=== PATIENT | female | born 1980 | race Caucasian/White ===

== ENCOUNTER → 2020-05-03 11:12 | Outpatient (BNVA) | payer BC, SELFPAY | PROVIDERS: Family Provider Family Medicine; Visit Provider Family Medicine | DX: Z20.828 Contact with and (suspected) exposure to other viral communicable diseases (principal) | CPT/HCPCS: 87635 ==

== ENCOUNTER 2021-05-10 09:35 | Outpatient (CLI) | payer OTHER, SELFPAY ==
--- NOTE | 2021-05-10 09:30 | US_ITS ---
WS: [id number] ULTRASOUND SOFT TISSUES RIGHT groin HISTORY: R19.03 - Right lower quadrant abdominal swelling, mass in the inguinal region. COMPARISON: None available. TECHNIQUE: 2-D and color Doppler imaging is submitted. Very hypoechoic irregular spiculated soft tissue mass in the RIGHT groin with posterior shadowing. Ma ss measures 2.1 x 2.1 x 1.8 cm. No additional masses are identified at the RIGHT groin. This correspo nds to the palpable abnormality. US/US soft tissue/extremity 86835 IMPRESSION: Irregular mass with increased vascularity centered in the RIGHT groin correspon ds to the palpable abnormality. Differential includes metastatic lymph node or aggressive mass such as sarcoma. This needs to be further evaluated. Recommend CT abdomen and pelvis with IV and oral contrast to evaluate for additional abno rmalities.
== END 2021-05-10 09:36 | disposition home or self-care (01) ==
PROVIDERS: PCP Internal Medicine; Visit Provider Surgery
DX: R19.03 Right lower quadrant abdominal swelling, mass and lump (principal)
CPT/HCPCS: 76882

== ENCOUNTER 2021-05-11 12:02 | Outpatient (CLI) | payer OTHER, SELFPAY ==
[2021-05-11] MEDS: iohexol 300 mg/mL 100 mL Btl IV (13:26)
[2021-05-11] MEDS: iohexol 300 mg/mL 50 mL Btl PO (13:27)
--- NOTE | 2021-05-11 13:30 | CT_ITS ---
WS: [id number] CT ABDOMEN PELVIS TECHNIQUE: Contrast-enhanced CT of the abdomen and pelvis with coronal and sagittal reformatted image s. CLINICAL INFORMATION: K43.9 - Ventral hernia without obstruction or gangrene COMPARISON: None. DLP: 1821.[address] scans at [facility] use at least one of these dose optimization techniques: automated e xposure control; mA and/or kV adjustment per patient size (includes targeted exams where dose is matc hed to clinical indication); or iterative reconstruction. FINDINGS:Spiculated lesion in the right superior groin measures 1.8 x 1.8 x 1.9 cm with irregular mar gins and enhancement. Wispy connection to the adjacent anterior rectus sheath. This corresponds to th e lesion seen on ultrasound. This lesion is nonspecific but differential considerations include benig n and malignant etiologies including abdominal wall endometriosis considering prior and pat ient age, desmoid or mesenchymal tumor, metastatic disease, lymphoma/sarcoma, and less likely postope rative scarring or granuloma considering perceived vascularity on ultrasound. Recommend ultrasound-gu ided biopsy for further evaluation. Hepatomegaly. Diffuse fatty infiltration of the liver. A few small hepatic cysts. Gallbladder is cont racted. Normal portal vein and splenic vein. Mild splenomegaly. Lung bases are well aerated. Normal G E junction. This adrenal glands are normal. Normal renal parenchymal enhancement. No hydronephrosis. Normal caliber abdominal aorta.Sigmoid diverticulosis. No evidence of acute diverticulitis. No abdominal or pelvic lymphadenopathy. Multi-follicular ovaries bilaterally. No free fluid in the cu l-de-sac. Small amount of irregular enhancement involving the anterior uterine fundus measuring 1.9 x 1.7 cm may represent a small intrauterine fibroid or sequela from prior . Tiny fat-containing umbilical hernia. Normal lumbar spine. No evidence of ventral abdominal wall marianna ia. CT/CT abdomen pelvis w con* [id number] IMPRESSION: 1. Unusual spiculated lesion in the right superior groin anterior to the rectu s sheath measures 1.8 x 1.8 x 1.9 cm with irregular margins and enhancement. Th is corresponds to the lesion seen on recent ultrasound. Differential considerat ions are discussed above and recommend ultrasound-guided biopsy for further simone luation. 2. Hepatomegaly with splenomegaly. Diffuse fatty infiltration liver. 3. Sigmoid diverticulosis. No evidence of acute diverticulitis. 4. Small amount of irregular enhancement involving the anterior uterine fundus measuring 1.9 x 1.7 cm may represent a small intrauterine fibroid or sequela f rom prior .
== END 2021-05-11 12:03 | disposition home or self-care (01) ==
LOC: RAD 12:06
PROVIDERS: PCP Internal Medicine; Visit Provider Surgery
DX: K43.9 Ventral hernia without obstruction or gangrene (principal); K57.30 Diverticulosis of large intestine without perforation or abscess without bleeding; R16.2 Hepatomegaly with splenomegaly, not elsewhere classified; K62.9 Disease of anus and rectum, unspecified
CPT/HCPCS: 74177

== ENCOUNTER → 2021-05-23 14:03 | Outpatient (BNVA) | payer OTHER, SELFPAY | PROVIDERS: PCP Internal Medicine; Visit Provider Surgery | DX: Z20.822 Contact with and (suspected) exposure to COVID-19 (principal) | CPT/HCPCS: 87635 ==

== ENCOUNTER 2021-05-29 06:19 | Day surgery (SDC) | payer OTHER, SELFPAY ==
[2021-05-26 12:47] VITALS: BMI 34.2
[2021-05-29] VITALS (12 sets, daily range): BP systolic 119–165; BP diastolic 18–118; PULSE 80–103; RESP 10–18; TEMP 36.4–36.6; O2SAT 93–97
--- NOTE | 2021-05-29 06:15 | W.PM.OPSUD ---
Surgery/Procedure H&P Update DATE OF PROCEDURE: May 29, 2021 DATE H&P PERFORMED: 05/10/21 H&P UPDATE INFORMATION: I have reviewed H&P completed within last 30 days, I have examined patient prior to procedure and No changes to prior documentation PREOP DIAGNOSIS: Abdominal wall mass PRIMARY INDICATION FOR PROCEDURE: The same PLANNED PROCEDURE: Operation Date: 05/29/21 07:00 Proposed Procedures p Excision Mass of abd wall 83862 R22.2(Not Applicable) - Rivera Oswald MD
[2021-05-29] MEDS: sodium chloride 0.9% 1,000 ML 30 ML IV (06:42)
[2021-05-29] MEDS: acetaminophen 1,000 MG/100 ML PIGGYBACK 400 MG IV (06:43)
--- NOTE | 2021-05-29 06:50 | P.ANESASSM_ITS ---
Pre-Anesthetic Assessment Pre-Anesthetic Assessment: Height/Weight: Height 1.68 m Weight 96.162 kg Temp Pulse Resp BP Pulse Ox 97.6 F 83 18 162/97 97 05/29/21 06:47 05/29/21 06:47 05/29/21 06:47 05/29/21 06:47 05/29/21 06:47 Preop Diagnosis: Abdominal wall mass Proposed Procedure: Operation Date: 05/29/21 07:00 Proposed Procedures p Excision Mass of abd wall 11605 R22.2(Not Applicable) - Rivera Oswald MD Was Beta Ashley taken within 24 hours: N/A Was Clonidine taken within 24 hours: N/A Last intake: Intake Last Liquid Date 05/28/21 Last Liquid Time 19:00 Last Solid Date 05/28/21 Last Solid Time 19:00 Social: Social History: No alcohol and No tobacco Exam: Pre-Anes Outpt Exam: alert, oriented x 3, clear to auscultation bila terally and regular rate & rhythm Airway: Submandibular: WNL Cervical ROM: WNL MP: 2 Dentition: Chipped History/ROS: No significant history except as noted CV/HEM: CV/HEM: None reported : : None reported Hepatic: Hepatic: None reported GI: GI: None reported Metabolic: Metabolic: None reported Musc/skel: Musc/skel: None reported Neuropsych: Neuropsych: None reported Anesthetic Plan: ASA status: 2 Anesthesia: Anesthesia Evaluation, General and Regional (specify below) Other: Consented for general with possible TAP block in PACU depending on extent of surgery. Risk and benefits explained, all questions answered. Risk of > 500 ml blood loss (7ml/kg in children): No PFSH Anesthesia PFSH: Family History Other Cancer Dementia Diabetes Lung disease Denies family history of CAD (coronary artery disease) Chronic kidney disease (CKD) Stroke Social History Alcohol intake: never Lives independently: Yes Household members: spouse and children Marital status: Data Anesthesia Cardiac Studies: No Data to Display
[2021-05-29] MEDS: lidocaine 2% INJ 20 mL INJECTION (07:18)
--- NOTE | 2021-05-29 07:51 | PM.OP ---
Operative Report Date of procedure: May 29, 2021 Pre-op Diagnosis: Abdominal wall mass Pre-op Diagnosis: Concerning for sarcoma Post-op diagnosis: same Post-op Findings: No invasion to the surrounding fatty tissues or underlying fascia Procedure Done: Excision of right lower anterior abdominal wall mass Implants: 15 [place]ian rounded drain Specimens removed/disposition: Right lower abdomeninal mass, short sutures marked superior and long sutures marked lateral Surgeon: Rivera Oswald Manager Environmental: Surgical techjayden Zapata Anesthesia: General (LMA leasing director Zena) Estimated blood loss (mL): 5 IV fluids (mL): 300 Condition: stable Disposition: same day Procedure: After identifying the patient holding area, the right lower abdominal wall mass was marked before the procedure by myself in the presence of female associate medical director nursing staff Jennifer, patient was then taken to the operative suite, was placed in supine position, IV propofol was infused by the anesthesia followed by LMA, prophylactic IV antibiotics were given per protocol, the abdomen region was done under the usual sterile technique. Time-out was done verifying the patient's name/date of /planned procedure and destination after the procedure, all were in agreement. After palpation of the mass, an incision was created on top of the mass coinciding to the skin crease and in continuity with the previous scar dissection was carried after the skin incision all the way to the subcutaneous tissues and underlying anterior abdominal wall fascia of the rectus abdominis, the mass was then excised en toto and there was no invasion to the surrounding tissues clinically detected or to the underlying fascia, short sutures marked superior and long sutures marked lateral, the specimen was then passed to the circulating nurse for permanent pathology. Thorough irrigation of the cavity was done and hemostasis, elected to leave a 15 [place]ian round drain was sutured to the skin by 2-0 nylon, followed by deep dermal closure by 2-0 Vicryl, 3-0 Vicryl then 4-0 Monocryl for skin closure. Lidocaine 2% was injected at the site of the incision that prior to the injection aspiration was done to make sure no injection is going into any vessel, followed by Dermabond and dry dressing. Patient tolerated the procedure well, count of instruments, needles and sponges were completed at the end of the procedure. And then patient was taken to the recovery area in stable condition. I Was present for the whole entire procedure
[2021-05-29 08:50] LABS: OR HCG Qualitative Urine Negative (Negative)
[2021-05-29] MEDS: HYDROcodone-acetaminophen 5-325 mg Tablet 1 TAB PO (09:04)
--- NOTE | 2021-05-29 09:53 | ANE.PACU2 ---
Inpatient post-anesthesia follow up: Airway intact: Yes Vital signs: Temperature 98 F Pulse Rate 90 Respiratory Rate 18 Blood Pressure 134/88 Pulse Oximetry 97 Oxygen Delivery Me thod Room Air Oxygen Flow Rate 5 Fraction of Inspir ed Oxygen Hydration adequate: Yes Nausea and vomiting: No Pain level: 1 Mental status: Baseline
== END 2021-05-29 09:38 | disposition home or self-care (01) ==
PROVIDERS: Anesthesiology; PCP Internal Medicine; Visit Provider Surgery
PROC: (CPT 13101; principal; 2021-05-29 07:00)
DX: R22.2 Localized swelling, mass and lump, trunk (principal); N80.6 Endometriosis in cutaneous scar
CPT/HCPCS: 13101; 13102; 22901; 81025; 84703; 88309; 88342; 96365; J0690; J1100; J1200; J2250; J2405; J2704; J3010; J7030

== ENCOUNTER → 2021-07-27 15:01 | Outpatient (BNVA) | payer OTHER, SELFPAY | PROVIDERS: PCP Family Medicine; Visit Provider Obstetrics & Gynecology | DX: N92.6 Irregular menstruation, unspecified (principal) | CPT/HCPCS: 83525; 84443 ==

== ENCOUNTER → 2021-11-29 15:47 | Outpatient (BNVA) | payer OTHER, SELFPAY | PROVIDERS: PCP Family Medicine; Visit Provider Clinical Nurse Specialist Adult Health | DX: J06.9 Acute upper respiratory infection, unspecified (principal) | CPT/HCPCS: 87426 ==

== ENCOUNTER 2022-03-27 11:49 | Emergency (ER) | payer OTHER, SELFPAY ==
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
[2022-03-27 12:16] VITALS: BP 159/101; PULSE 89; RESP 18; TEMP 36.9; O2SAT 97
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
[2022-03-27] MEDS: ibuprofen 800 mg tablet PO (13:59)
[2022-03-27 15:02] VITALS: PULSE 100; RESP 16; O2SAT 98
== END 2022-03-27 15:03 | disposition home or self-care (01) ==
PROVIDERS: Emergency Provider Family Medicine; PCP Family Medicine
DX: M79.18 Myalgia, other site (principal); Z79.84 Long term (current) use of oral hypoglycemic drugs; V89.2XXA Person injured in unspecified motor-vehicle accident, traffic, initial encounter
CPT/HCPCS: 72040; 73030; 99283

== ENCOUNTER → 2023-03-19 18:05 | Outpatient (BNVA) | payer SELFPAY | PROVIDERS: PCP Family Medicine; Visit Provider Registered Nurse Neonatal Intensive Care | DX: R52 Pain, unspecified (principal) | CPT/HCPCS: 87400; 87426 ==

== ENCOUNTER 2023-06-21 11:58 | Emergency (ER) | payer OTHER, SELFPAY ==
[2023-06-21] VITALS (34 sets, daily range): BP systolic 126–173; BP diastolic 91–132; PULSE 59–94; RESP 9–27; TEMP 36.9; O2SAT 96–99; BMI 38.0
--- NOTE | 2023-06-21 12:00 | XR_ITS ---
WS: [id number] Chest 2 views, 06/21/2023 Clinical Data: cp Comparison: None. Findings: No nodules, masses or effusions are seen. The heart is minimally enlarged. The pulmonary va scularity is not increased. No pneumonia or pneumothorax is seen. Impression: Cardiomegaly.
--- NOTE | 2023-06-21 12:01 | ECG_ITS ---
[facility] Test Date: 2023-06-21 Pat Name: Heide Weston Department: Room: Gender: Female Store Coordinator: : 1980 Requested By: Roverto Galdamez Order Number: [id number] Keila MD: Ralph Umanzor M.D. Measurements Intervals Gilbert Rate: 70 P: 39 SC: 136 QRS: 0 QRSD: 88 T: 3 QT: 373 QTc: 405 Interpretive Statements SINUS RHYTHM WITH SINUS ARRHYTHMIA LOW QRS VOLTAGE IN PRECORDIAL LEADS [QRS DEFLECTION < 1.0 mV IN CHEST LEADS] No previous ECG available for comparison Electronically Signed On 06-21-2023 13:59:51 FIELD CONTACT PERSON by Ralph Umanzor M.D. [id number]
[2023-06-21 12:39] LABS: Basophils % 0.4 %; Eosinophils # 0.1 10^3/uL (0.0-0.8); Eosinophils % 1.1 %; Hematocrit 40.8 % (36-47); Lymphocytes # 2.5 10^3/uL (0.8-4.8); Lymphocytes % 26.2 %; Mean Corpuscular HGB Conc 32.6 g/dL (30-55); Mean Corpuscular Hemoglobin 29.5 pg (27-33); Mean Corpuscular Volume 90.5 fl (85-98); Mean Platelet Volume 9.3 fL (7.4-10.4); Monocytes # 0.7 10^3/uL (0.2-0.9); Monocytes % 6.8 %; Neutrophils # 6.25 10^3/uL (1.8-7.7); Neutrophils % 65.2 %; Nucleated Red Blood Cells % 0 %; Platelet Count 278 10^3/cmm (157-399); Red Blood Count 4.51 10^6/uL (3.85-5.65); Red Cell Distribution Width 13.4 % (12.1-15.1); White Blood Count 9.59 10^3/uL (3.29-11.43)
--- NOTE | 2023-06-21 12:48 | W.ED.CHESTPA ---
HPI - Chest Pain General: Chief Complaint: Chest Pain Stated Complaint: chest pains Time Seen by Provider: 06/21/23 12:34 Source: patient Mode of arrival: ambulatory History of Present Illness: 42-year-old female presents emergency room complaining of midsternal chest pain radiating to her back. No fever sweats or chills. She is not missing any anything that exacerbates or relieves it. States that she did have some acholic stools beginning yesterday no vomiting or diarrhea. MD complaint: chest pain Onset (ago): day(s) (1) Timing of current episode: episodic Onset: during rest Pain location: substernal Pain radiation: back Severity: mild Quality: aching Relieving factors: nothing Exacerbating factors: nothing Associated symptoms: Deny abdominal pain, diaphoresis, dyspnea, fever(s), leg edema, nausea, palpitations, sense of impending doom, syncope or vomiting Review of Systems Const: Denies: fever(s), chills or diaphoresis Card: Denies: chest pain, palpitations or syncope Resp: Denies: dyspnea GI: Denies: abdominal pain, nausea or vomiting : Denies: dysuria, urinary frequency or urinary urgency Musc: Denies: neck pain or back pain Skin/Breast: Denies: rash PFSH ED PFSH: Medical History Major depression Obesity Abdominal wall mass Found to be an endometrioma Surgical History History of 2016 Family History Father Cancer Lung cancer Hypertension Hyperlipidemia Grandfather Diabetes Paternal Mother Hypertension Other Dementia Lung disease Denies family history of CAD (coronary artery disease) Chronic kidney disease (CKD) Thyroid disease Stroke Social History Smoking and tobacco/nicotine status: never used tobacco/nicotine Alcohol intake: never Substance/Drug Use: never Lives independently: Yes Household members: spouse and children Marital status: Physical Exam Const: COMMON NORMALS: no acute distress GENERAL APPEARANCE: cooperative and comfortable ORIENTATION/CONSCIOUSNESS: Yes awake, Yes oriented to person, Yes oriented to place and Yes oriented to time HENMT: COMMON NORMALS: normocephalic, atraumatic and hearing grossly normal bilaterally HEAD & SCALP: normocephalic and atraumatic Resp: COMMON NORMALS: normal respiratory effort, No retractions, No use of accessory muscles and clear to auscultation bilaterally AUSCULTATION: clear to auscultation bilaterally Cardio: COMMON NORMALS: regular rate, regular rhythm and No murmurs present (Cardio) RATE: regular rate RHYTHM: regular rhythm GI: COMMON NORMALS: Soft to palpation and No hepatosplenomegaly present AUSCULTATION: Yes normoactive bowel sounds PALPATION: Yes Soft to palpation, No Tenderness to palpation present (GI), No Guarding due to palpation present (GI) and Yes No hepatosplenomegaly present Extremity: COMMON NORMALS: normal to inspection, capillary refill normal, no clubbing, cyanosis or edema, no calf tenderness and no pedal edema Neuro: SENSORIUM/ORIENTATION: Yes oriented to person, Yes oriented to place and Yes oriented to time Skin: COMMON NORMALS: no rashes or lesions noted GENERAL SKIN EXAM: no rashes or lesions noted Course Vital Signs: Vital signs: Vital Signs Temperature 98.4 F 06/21/23 12:09 Pulse Rate 77 06/21/23 15:27 Respiratory Rate 16 06/21/23 15:27 Blood Pressure 152/91 06/21/23 15:27 Pulse Oximetry 99 06/21/23 15:27 Oxygen Delivery Me thod Room Air 06/21/23 15:27 MDM - Chest Pain Medical Decision Making Labs and imaging reviewed gallbladder ultrasound unremarkable labs unremarkable. Suspect GI source discomfort. Pantoprazole twice daily for 10 days then daily follow-up with primary care return if has further problems. If acholic stools persist may need further outpatient evaluation including possible HIDA scan Medical Records I reviewed the patient's medical records. Lab Data I reviewed the patient's lab results. 06/21/23 12:31 06/21/23 12:31 Laboratory Results WBC 9.59 10^3/uL (3.29-11.43) 06/21/23 12:31 RBC 4.51 10^6/uL (3.85-5.65) 06/21/23 12:31 Hgb 13.30 g/dL (11.27-16.99) 06/21/23 12:31 Hct 40.8 % (36-47) 06/21/23 12:31 MCV 90.5 fl (85-98) 06/21/23 12:31 MCH 29.5 pg (27-33) 06/21/23 12:31 MCHC 32.6 g/dL (30-55) 06/21/23 12:31 RDW 13.4 % (12.1-15.1) 06/21/23 12:31 Plt Count 278 10^3/cmm (157-399) 06/21/23 12:31 MPV 9.3 fL (7.4-10.4) 06/21/23 12:31 Neut % (Auto) 65.2 % 06/21/23 12: Lymph % (Auto) 26.2 % 06/21/23 12: [place] % (Auto) 6.8 % 06/21/23 12: Eos % (Auto) 1.1 % 06/21/23 12: Baso % (Auto) 0.4 % 06/21/23 12:31 Neut # (Auto) 6.25 10^3/uL (1.8-7.7) 06/21/23 12: Lymph # (Auto) 2.5 10^3/uL (0.8-4.8) 06/21/23 12:31 [place] # (Auto) 0.7 10^3/uL (0.2-0.9) 06/21/23 12: Eos # (Auto) 0.1 10^3/uL (0.0-0.8) 06/21/23 12: Baso # (Auto) 0.0 10^3/uL (0.0-0.1) 06/21/23 12:31 Nucleated RBC % (auto) 0 % 06/21/23 12: Nucleated RBCs # 0.0 /100WBC 06/21/23 12:31 Sodium 135 mmol/L (136-145) L 06/21/23 12:31 Potassium 4.4 mmol/L (3.5-5.1) 06/21/23 12: Chloride 101 mmol/L (98-107) 06/21/23 12:31 Carbon Dioxide 23 mmol/L (22-29) 06/21/23 12:31 Anion Gap 15.4 (5-19) 06/21/23 12:31 BUN 13 mg/dL (6-20) 06/21/23 12:31 Creatinine 0.6 mg/dL (0.5-0.9) 06/21/23 12:31 GFR Calculation 110.7 mL/min (90-130) 06/21/23 12:31 Glucose 108 mg/dL (65-115) 06/21/23 12:31 Calculated Osmolality 281 mOsm/kg (285-295) L 06/21/23 12:31 Calcium 8.8 mg/dL (8.5-10.5) 06/21/23 12:31 Total Bilirubin 0.2 mg/dL (0.15-1.2) 06/21/23 12:31 AST 20 U/L (0-32) 06/21/23 12:31 ALT 16 U/L (0-33) 06/21/23 12:31 Alkaline Phosphatase 84 U/L (35-105) 06/21/23 12:31 Troponin T Baseline < 6 ng/L (0-10) 06/21/23 12:31 Troponin T 120 Minute 6.00 ng/L (0-10) 06/21/23 14:30 Delta Troponin T 0.56500 ABS# (0-10) 06/21/23 14:30 Total Protein 6.6 g/dL (6.6-8.7) 06/21/23 12:31 Albumin 3.8 g/dL (3.5-5.2) 06/21/23 12:31 Globulin 2.8 g/dL (1.3-4.6) 06/21/23 12:31 Lipase 29 U/L (13-60) 06/21/23 12:31 HCG, Qual Negative (Negative) 06/21/23 12:31 All radiology interpretation(s) finalized by discharge Discharge Plan Discharge Patient Disposition: Home Clinical Impression: Chest pain due to GERD Condition: Stable Prescriptions: New pantoprazole 40 mg tablet,delayed release (DR/EC) 40 mg PO BID 10 Days Qty: 40 0RF Rx Instructions: 1 p.o. twice daily for 10 days then 1 p.o. daily No Action levonorgestrel-ethinyl estrad [Aviane] 0.1-20 mg-mcg tablet 1 tab PO DAILY Qty: 28 12RF [place] 155 mg Capsule 1 cap PO DAILY vitamin S45-gwjqw acid 2,500-400 mcg Tablet,Disintegrating 1 tab PO DAILY nivvzeqk-lxcfphl-V-zinc-lysine 12.5 mg-12.5 mcg-30 mg-5 mg Capsule, Sprinkle 1 cap PO DAILY losartan 25 mg tablet 25 mg PO DAILY Discharge Orders: Discharge ED (Routine); Ordered 06/21/23 Ordered By: Andrew Sanchez Referrals: Gary Palmer MD [Primary Care Provider] - Discharge Diet: Usual diet Discharge Activity: Resume usual activity Patient Instructions: Diet for Stomach Ulcers and Gastritis (ED), Opioid Safety, Pain Management Activity Restrictions/Additional Instructions: Thank you for choosing [facility] for your healthcare needs today. Please realize this is an emergency room and that we are providing you with a medical screening exam and this may not be complete and all inclusive of all the testing and or work up that you may need to determine your ailment or severity of your illness. It is very important that you follow up as instructed or that you return to the Emergency Department should you have concerns or if your condition changes or worsens in any way. Coding Level of Care Code ED [employer] [facility] [place]
--- NOTE | 2023-06-21 12:50 | US_ITS ---
WS: [id number] RIGHT UPPER QUADRANT ULTRASOUND HISTORY: abd pain COMPARISON: None available. Liver: 14.0 cm in length. Normal size liver and echogenicity. No bile duct dilatation or mass. Portal Vein: Normal hepatopetal flow with monophasic waveform. Gallbladder: Normally distended gallbladder with no stones or wall thickening. CBD: 0.4 cm Pancreas: Normal size and echogenicity. Right kidney: 10.9 cm in length. Normal size and echogenicity. No hydronephrosis or mass. Aorta and IVC: Unremarkable abdominal aorta and IVC. No ascites. IMPRESSION: Normal RIGHT upper quadrant ultrasound.
[2023-06-21 12:56] LABS: Troponin(5th) Baseline < 6 ng/L (0-10)
[2023-06-21 13:00] LABS: Alanine Aminotransferase 16 U/L (0-33); Albumin Level 3.8 g/dL (3.5-5.2); Alkaline Phosphatase 84 U/L (35-105); Blood Urea Nitrogen 13 mg/dL (6-20); Calcium 8.8 mg/dL (8.5-10.5); Carbon Dioxide 23 mmol/L (22-29); Chloride 101 mmol/L (98-107); Globulin 2.8 g/dL (1.3-4.6); Glomerular Filtration Rate 110.7 mL/min (90-130); Glucose 108 mg/dL (65-115); Lipase 29 U/L (13-60); Osmolality Calculated 281 mOsm/kg (285-295); Sodium 135 mmol/L (136-145); Total Bilirubin 0.2 mg/dL (0.15-1.2); Total Protein 6.6 g/dL (6.6-8.7)
[2023-06-21 13:01] LABS: Anion Gap 15.4 (5-19); Aspartate Amino Transferase 20 U/L (0-32); Potassium 4.4 mmol/L (3.5-5.1)
[2023-06-21 13:18] LABS: HCG, Serum Qual Negative (Negative)
--- NOTE | 2023-06-21 13:58 | ECG_ITS ---
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 Measurements Intervals [place] Rate: 62 P: 40 WI: 152 QRS: 6 QRSD: 82 T: 11 QT: 396 QTc: 402 Interpretive Statements SINUS RHYTHM WITH SINUS ARRHYTHMIA LOW QRS VOLTAGE IN PRECORDIAL LEADS [QRS DEFLECTION < 1.0 mV IN CHEST LEADS] Compared to ECG 06/21/2023 12:04:41 No significant changes Electronically Signed On 06-21-2023 14:01:15 ORTHOPEDIC CODER by Ralph Umanzor M.D. [email or web address]
[2023-06-21 14:57] LABS: Troponin 5 2HR Delta 0.00001 ABS# (0-10)
== END 2023-06-21 16:24 | disposition home or self-care (01) ==
PROVIDERS: Emergency Medicine; Emergency Provider Family Medicine; PCP Family Medicine
DX: K21.9 Gastro-esophageal reflux disease without esophagitis (principal)
CPT/HCPCS: 71045; 76705; 80053; 83690; 84484; 84703; 85025; 93005; 99285

== ENCOUNTER → 2024-02-03 09:21 | Outpatient (BNVA) | payer OTHER, SELFPAY | PROVIDERS: PCP Family Medicine; Visit Provider Nurse Practitioner Family | DX: J02.9 Acute pharyngitis, unspecified (principal) | CPT/HCPCS: 87880 ==

== ENCOUNTER 2024-11-02 14:35 | Outpatient (CLI) | payer OTHER, SELFPAY ==
--- NOTE | 2024-11-02 14:41 | MM_ITS ---
WS: [id number] BILATERAL 3D TOMOSYNTHESIS DIGITAL SCREENING MAMMOGRAPHY WITH CAD CLINICAL INFORMATION: SCREENING HISTORY: Screening mammogram. No current complaints. COMPARISON: Baseline TECHNIQUE: Bilateral CC and MLO views. FINDINGS: Scattered fibroglandular densities bilaterally. No suspicious focal mass, asymmetry, calcifications, or architectural distortion. No evidence of malignancy. A few tiny incidental punctate calcifications RIGHT breast. MM/MM scr BI tomosynthesis [id number] IMPRESSION: DENSITY: There are scattered areas of fibroglandular density. BI-RADS: 2 - Benign. FOLLOW UP: 1 Year Follow-up Recommend return to annual screening mammography.
== END 2024-11-02 14:36 | disposition home or self-care (01) ==
PROVIDERS: PCP Nurse Practitioner Family; Visit Provider Nurse Practitioner Family
DX: Z12.31 Encounter for screening mammogram for malignant neoplasm of breast (principal); R92.323 Mammographic fibroglandular density, bilateral breasts
CPT/HCPCS: 77063; 77067

== ENCOUNTER → 2025-04-16 08:41 | Outpatient (BNVA) | payer OTHER, SELFPAY | PROVIDERS: PCP Family Medicine; Visit Provider Family Medicine | DX: E11.65 Type 2 diabetes mellitus with hyperglycemia (principal); I10 Essential (primary) hypertension; K21.9 Gastro-esophageal reflux disease without esophagitis | CPT/HCPCS: 80053; 82043; 83036; 84439; 84443; 85025 ==